=== PATIENT | female | born 1965 | race Caucasian/White ===

== ENCOUNTER 2023-04-02 09:41 | Outpatient (OUT) | payer MEDICARE, SELFPAY ==
[2023-04-02 09:59] LABS: Basophils Percent Auto 0.6 % (0.2-2.0); Eosinophils Absolute Auto 0.2 10^3/uL (0.0-0.7); Eosinophils Percent Auto 3.8 % (0.9-7.0); Hematocrit 38.2 % (36.0-48.0); Hemoglobin 13.2 g/dL (12.0-16.0); Immature Granulocytes Abs Auto 0.02 10^3/uL (0.00-0.03); Immature Granulocytes Pct Auto 0.3 % (0.0-0.5); Lymphocytes Absolute Auto 1.4 10^3/uL (1.2-3.8); Lymphocytes Percent Auto 22.1 % (20.5-60.0); Mean Corpuscular HGB Conc 34.6 g/dL (29.9-35.2); Mean Corpuscular Hemoglobin 32.3 pg (26.7-34.0); Mean Corpuscular Volume 93.4 fL (81.0-99.0); Mean Platelet Volume 8.9 fL (9.5-13.5); Monocytes Absolute Auto 0.4 10^3/uL (0.3-0.8); Monocytes Percent Auto 6.4 % (1.7-12.0); Neutrophils Absolute Auto 4.2 10^3/uL (1.4-6.5); Neutrophils Percent Auto 66.8 % (43.0-75.0); Platelet Count 250 10^3/uL (150-450); Red Blood Count 4.09 10^6/uL (4.20-5.40); Red Cell Distribution Width 12.5 % (11.0-15.0); White Blood Count 6.3 10^3/uL (4.0-11.0)
[2023-04-02 10:27] LABS: Alanine Aminotransferase 34 U/L (14-59); Albumin Level 3.9 g/dL (3.4-5.0); Alkaline Phosphatase 100 U/L (46-116); Anion Gap 12.6; Aspartate Amino Transferase 26 U/L (15-37); BUN Creatinine Ratio 15.6; Bilirubin Total 0.4 mg/dL (0.2-1.0); Calcium 9.3 mg/dL (8.5-10.1); Carbon Dioxide 26.1 mmol/L (21.0-32.0); Chloride 100 mmol/L (98-107); Estimated GFR (African America >60 (>=60); Estimated GFR (Non-African Ame >60 (>=60); Globulin 3.8 g/dL; Glucose 93 mg/dL (74-106); Potassium 3.7 mmol/L (3.5-5.1); Sodium 135 mmol/L (136-145); Total Protein 7.7 g/dL (6.4-8.2)
[2023-04-02 10:44] LABS: Chol HDL Ratio 2.8; Cholesterol 168 mg/dL (<=200); HDL Cholesterol 59 mg/dL (40-60); Thyroid Stimulating Hormone 2.364 uIU/mL (0.358-3.740); Triglycerides 275 mg/dL (<=150)
[2023-04-03 09:07] LABS: HCV Ab Non Reactive (Non Reactive); HIV Ab/p24 Ag Screen Non Reactive (Non Reactive)
== END 2023-04-02 09:42 ==
LOC: LAB 09:41
PROVIDERS: PCP Nurse Practitioner Primary Care; Visit Provider Nurse Practitioner Primary Care
DX: I10 Essential (primary) hypertension (principal); Z11.4 Encounter for screening for human immunodeficiency virus [HIV]; E78.5 Hyperlipidemia, unspecified; Z13.29 Encounter for screening for other suspected endocrine disorder
CPT/HCPCS: 36415; 80053; 80061; 84443; 85025; 86803; 87389

== ENCOUNTER 2024-03-06 09:50 | Outpatient (OUT) | payer MEDICARE, SELFPAY ==
[2024-03-06 11:02] LABS: Hematocrit 34.4 % (36.0-48.0); Mean Corpuscular HGB Conc 34.9 g/dL (29.9-35.2); Mean Corpuscular Hemoglobin 32.6 pg (26.7-34.0); Mean Corpuscular Volume 93.5 fL (81.0-99.0); Mean Platelet Volume 8.9 fL (9.5-13.5); Platelet Count 273 10^3/uL (150-450); Red Blood Count 3.68 10^6/uL (4.20-5.40); Red Cell Distribution Width 12.5 % (11.0-15.0); White Blood Count 5.8 10^3/uL (4.0-11.0)
[2024-03-06 11:51] LABS: Alanine Aminotransferase 37 U/L (14-59); Albumin Globulin Ratio 1.1; Albumin Level 3.9 g/dL (3.4-5.0); Alkaline Phosphatase 84 U/L (46-116); Anion Gap 9.4; Aspartate Amino Transferase 21 U/L (15-37); BUN Creatinine Ratio 13.5; Bilirubin Total 0.4 mg/dL (0.2-1.0); Calcium 9.4 mg/dL (8.5-10.1); Carbon Dioxide 29.5 mmol/L (21.0-32.0); Chloride 95 mmol/L (98-107); Chol HDL Ratio 2.7; Cholesterol 178 mg/dL (<=200); Estimated GFR (African America >60 (>=60); Estimated GFR (Non-African Ame >60 (>=60); Globulin 3.4 g/dL; Glucose 87 mg/dL (74-106); HDL Cholesterol 65 mg/dL (40-60); Potassium 3.9 mmol/L (3.5-5.1); Sodium 130 mmol/L (136-145); TSH W/ REFLEX FT4 2.034 uIU/mL (0.358-3.740); Total Protein 7.3 g/dL (6.4-8.2); Triglycerides 230 mg/dL (<=150)
[2024-03-07 05:08] LABS: HCV Ab Non Reactive (Non Reactive); HIV Ab/p24 Ag Screen Non Reactive (Non Reactive)
== END 2024-03-06 09:51 | disposition home or self-care (01) ==
PROVIDERS: PCP Nurse Practitioner; Visit Provider Nurse Practitioner
DX: Z00.00 Encounter for general adult medical examination without abnormal findings (principal); Z13.6 Encounter for screening for cardiovascular disorders; Z11.59 Encounter for screening for other viral diseases; Z11.4 Encounter for screening for human immunodeficiency virus [HIV]; Z13.29 Encounter for screening for other suspected endocrine disorder
CPT/HCPCS: 36415; 80053; 80061; 84443; 85027; 86803; 87389

== ENCOUNTER 2024-04-11 11:04 | Outpatient (OUT) | payer MEDICARE, SELFPAY ==
--- OUTSIDE RECORDS SUMMARY | 2024-04-11 11:12 | XMS_ITS ---
Patient Summarization (C-CDA 2.1 CCD) Created on: April 11, 2024 ANASTASIA PORTILLO : 1965 Sex: Undifferentiated Author Organization Sample organization Care Team Providers Care T[employer] Curer Name Role Phone GINNY BURT Admitting Unavailable GINNY BURT Attending Unavailable [facility] DR TOLLIVER Primary Care Unavailable TREVA, DR LADI Camara Consulting Unavailable GINNY BURT Consulting Unavailable Emerson SALEEM, Caryl Paul Primary Care Unavailab Irene SALEEM, Nona Goodrich Attending Unavail able Emerson SALEEM, Caryl Paul Primary Care Unavailab Irene SALEEM, Nona Goodrich Attending Unavail able JASMIN THORNTON Attending Unavailable GINNY BURT Attending Unavailable SATURNINO MCADAMS Referring Unavailable PEMASATURNINO Page Primary Care Unavailable DIONY ROLLINS Attending Unavailable DIONY ORLLINS Referring Unavailable PEMASATURNINO Primary Care Unavailable Allergies Allergy Classification Reported Allergen(s) Allergy Type Date of Onset Reaction(s) Facility (1 source) No Known Medication Allergies; Translations: [No Known Medication Allergies] Propensity to adverse reactions to drug (disorder) [facility] Repository Encounters Encounter Date Encounter Type Care Provider Facility Start: 04-05-2024 End: 04-05-2024 ambulatory DIONY ROLLINS [facility] Start: 03-28-2024 End: 03-28-2024 ambulatory SATURNINO [facility] Start: 03-28-2024 Encounter for gynecological examination (general) (routine) without abnormal findings [facility] Start: 03-27-2024 End: 03-27-2024 ambulatory GINNY BURT Not Available Start: 12-06-2023 End: 12-06-2023 ambulatory JASMIN THORNTON Not Available Start: 11-02-2023 End: 11-03-2023 ambulatory Caryl Norman MD Facility:[facility] Start: 11-27-2021 End: 11-28-2021 ambulatory GINNY BURT Facility:[facility] Payers Date Payer Category Payer Medicare [id number] 2021 Unknown 1965 Unknown [id number] 2.16.84 [id number] 1965 Unknown [id number] 2.16. [id number] 1965 Unknown [id number] 2.16. [id number] 1965 Unknown [id number] 2.16.84 [id number] 1965 Unknown [id number] 2.16.84 [id number] 1965 Unknown [id number] 2.16.8 [id number] 1965 Unknown [id number] 2.16.8 [id number] 1958 Unknown [id number] Problems Problem Classification Problem Date Documented Da te Episodic/Chronic Other connective tissue disease (1 source) Arthrodesis status; Translations: [ARTHRODESIS STATUS] Onset: 12-03-2021 Episodic Other nervous system disorders (1 source) Paresthesia of skin; Translations: [PARESTHESIA OF SKIN] Onset: 12-03-2021 Episodic Other screening for suspected conditions (not mental disorders or infectious disease) (2 sources) Encounter for screening mammogram for malignant neoplasm of breast; Translations: [Encounter for screening mammogram for malignant neoplasm of breast] Onset: 03-28-2024 Episodic Spondylosis; intervertebral disc disorders; other back problems (4 sources) Dorsalgia, unspecified; Translations: [DORSALGIA UNSPECIFIED] Onset: 11-27-2021 Episodic Unclassified (1 source) Annual Exam Onset: 03-28-2024 Results Test Name Value Interpretation Reference Range Facility MAMM SCREENING 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 Computer aided detection was utilized. FINDINGS: There are scattered areas of fibroglandular density. There are no suspicious masses, calcifications, or areas of architectural distortion. IMPRESSION: No mammographic evidence of malignancy. BI-RADS: BI-RADS 1 - Negative Recommendation: Routine screening mammogram in 1 year. Finalized by Matthew Whitt MD on 04/05/2024 1:37 PM 1 b MAMM 1 YR Normal [facility] Provider Letteron 11-14-2023 Provider Letter (Inserted Image. Emelina ble to display) Caryl Norman MD [address] [place] [id number] Re: Anastasia Portillo 1965 Date of Visit: 11/02/2023 Dear Caryl Norman, I had the pleasure of evaluating your patient, Anastasia Portillo, in the [facility] on 11/02/2023. Attached you will find my office visit note with detailed assessment and recommendations. Thank you for allowing me to participate in the care of your kind patient. The patient was provided with discharge instructions, both written and verbal, and follow up has been arranged as stated in the attached note. Please do not hesitate to contact our office with any questions. Sincerely, Nona Barajas MD MS Allergy and Immunology [facility] [place] [address] C C Providers: The following document(s) were included in the letter: November 02, 2023 11:26:53 EST - (11/02/2023) Office Visit Note Normal [facility] Allergy/Immunology Office/Cl inic Noteon 11-02-2023 Allergy/Immunology Office/Clinic Note History of Present Illness Anastasia is a 58 year old female that returns to the office for a 1 year follow up. Anastasia reports she does Singulair daily. She reports she does use Flonase and Azelastine as needed. She reports she if she needs the nasal sprays its in the summer. She denies any nose bleeds or sinus infections. She does report PND and throat clearing in the mornings. Anastasia states she is not interested in allergy shots. She also denies any nasal drainage, nasal congestion, sore throat or itchy/watery eye. 11/01/2022 Assessment/Plan 1. Post-nasal drip Chronic postnasal drip is manageable with current medications. 2. Vertigo Chronic, stable on current therapies 3. Chronic allergic rhinitis due to pollen -Continue allergen avoidance measures: Pollen (tree, grass, weed), dust mite, dog -Continue fluticasone 1-2 sprays per nostril up to twice a day -Continue azelastine 1-2 sprays per nostril up to twice a day -Continue Singulair 10 mg daily -May add nasal saline spray/mist prior to nasal sprays -Notify office if allergy symptoms become uncontrolled Follow-up in 12 months for AR, postnasal drip or sooner if needed [1] Physical Exam Vitals & Measurements HR: 67 (Peripheral) BP: 115/80 HT: 165 cm WT: 79.9 kg WT: 79.9 kg (Dosing) BMI: 29.35 Constitutional: The patient is oriented to person, place, and time and well-developed, well-nourished, and in no distress. HENT: Head: Normocephalic and atraumatic. Right Ear: Tympanic membrane, external ear and ear canal normal. No drainage or tenderness. Tympanic membrane is not injected, not scarred, not perforated, not erythematous and not retracted. Left Ear: Tympanic membrane, external ear and ear canal normal. No drainage or tenderness. Tympanic membrane is not injected, not scarred, not perforated, not erythematous and not retracted. Nose: Mucosal edema moderate (pale boggy nasal mucosa without obstruction or nasal polyps) and rhinorrhea (clear) ispresent. Mouth/Throat: Uvula is midline, oropharynx is clear and moist and mucous membranes are normal. Eyes: Conjunctivae and EOM are normal. Pupils are equal, round, and reactive to light. Neck: Normal range of motion. Neck supple. Cardiovascular: Normal rate and regular rhythm. No murmur heard. Pulmonary/Chest: Effort normal and breath sounds normal. No wheezes. No rales. Abdominal: Soft. Bowel sounds are normal. No masses.Musculoskeletal: Normal range of motion. No visible edema. Neurological: Alert and oriented to person, place, and time. Skin: Skin is warm and dry. No rash noted. Not diaphoretic. No erythema. Psychiatric: Affect normal. Vitals Reviewed Additional Vitals No qualifying data available. Assessment/Plan 1. Chronic allergic rhinitis due to pollen Well controlled on current regimen of Flonase, Azelastine, Singulair and saline. We discussed incorporation of saline rinse before bed to help with dryness. Plan - May use saline rinse before bed - Continue Singulair - Use nasal sprays as needed - Follow up in 1 year Physician Comments This note was created with the aid of LetMe[employer] voice recognition software. Every reasonable effort was made to assure accuracy and reliability of this note despite the inaccuracy, inefficiencies, and flaws of any electronic medical record program. There may be typographical errors that remain unaddressed and this in no way reflects on the quality of patient care received in this patient encounter. Problem List/Past Medical History Ongoing Chronic allergic rhinitis due to pollen Ear pain Hypercholesterolemia Hypertension - High blood pressure Post-nasal drip Vertigo Vestibular nerve disorder Historical No qualifying data Procedure/Surgical History Gall Bladder Removal (03/17/1992) Knee Surgery (1995) Comments: 7 on left knee; Patient Comment: Had 7 knee surgeries since Back Surgery (10/04/2013) Medications amitriptyline 25 mg oral tablet atorvastatin 40 mg oral tablet azelastine 137 mcg/inh (0.1%) nasal spray, 1 sprays, Nasal, BID, 3 refills Cymbalta 20 mg oral delayed release capsule, 40 mg= 2 caps, Oral, Daily, Not taking fluticasone 50 mcg/inh nasal spray, 1 sprays, Nasal, BID, 3 refills montelukast 10 mg oral tablet, 10 mg= 1 tabs, Oral, Daily, 1 refills Pepcid AC 10 mg oral tablet, 10 mg= 1 tabs, Oral, Daily Prempro 0.3 mg-1.5 mg oral tablet, 1 tabs, Oral, Daily Soolantra 1% topical cream, 1 erickson, Topical, Daily, Not taking Trileptal, 300 mg Caterina, Not taking Allergies No Known Medication Allergies Social History Employment/School Retired. Exercise Exercise duration: 30. Exercise frequency: Daily. Home/Environment Living situation: Home/Independent. Smoker in household: Yes. Feels unsafe at home: Yes. Safe place to go: Yes. Family/Friends available for support: Yes. Sexual Sexually active: Yes. Number of partners in last 30 days 1. Number of partners in last 12 months 1. Sexual orientation: Straight or heterosexual (more content not included)... Normal [facility] XR Spine Lumbar Complete w/F raul AND Mobile 03-22-2022 XR Spine Lumbar Complete w/Flex AND Ext FINDINGS: Lumbosacral pedicle screw fusion hardware, intervertebral disc spacer. No osseous or hardware fusion. Preserved disc space heights throughout the lumbar spine and distal thoracic region. FLEXION AND EXTENSION: Near normal anatomic alignment, lumbosacral fusion (no change). IMPRESSION: 1. Lumbosacral fusion, near normal anatomic alignment. 2. No change with flexion and extension. Report reported and signed by Kenton Cummings on 03/22/2022 1049 Normal [facility] MR head/brain wo/w conon MR head/brain wo/w con [facility] [address] MRI Report Signed Patient: Anastasia Portillo MR#: [id number] : 1965 Acct:[id number] Age/Sex: 56 / F ADM Date: 02/17/22 Loc: MR Room: Type: [facility] Attending Dr: Ginny Burt PA-C Ordering Provider: Ginny Burt PA-C Date of Service: 02/17/22 MR/MR head/brain wo/w con: R42, G43.809, G43.019 Copies to: Ginny Burt PA-C MR head/brain wo/w con 02/17/2022 2:50 PM SIGN AND SYMPTOMS: History of migraine headaches with vertigo PROTOCOL: Multiplanar multisequence MR images of the brain were obtained with and without IV contrast. CONTRAST: 17 mL of intravenous ProHance COMPARISON: None. FINDINGS: Extra axial spaces: Age appropriate. Hemorrhage: None. Ventricular system: Within normal limits. Basal cisterns: Within normal limits and not effaced. Cerebral parenchyma: Scattered nonspecific T2 and T2 FLAIR hyperintense foci are noted in the periventricular and subcortical white matter. Midline shift: None.. Cerebellum: Within normal limits. Brainstem: Within normal limits. OTHER: Calvarium: Normal marrow signal. Vascular system: Satisfactory flow voids within the anterior and posterior circulation. Visualized Paranasal sinuses: Within normal limits. Visualized Orbits: Within normal limits. Visualized upper cervical spine: Within normal limits. Sella and skull base: Within normal limits. MR/MR head/brain wo/w con IMPRESSION: No acute intracranial pathology or abnormal postcontrast enhancement. Scattered nonspecific T2 and T2 FLAIR hyperintense foci are noted in the periventricular and subcortical white matter. Impression dictated by: Cesar Ponce M.D.02/17/2022 4:56 PM Dictation Location: [place] [address] Transcribed By: [facility] 02/17/221655 Dictated By: Cesar Ponce II, MD 02/17/22 164 Signed By: 02/17/221655 [facility] MRI LSPINE WO CONon 11-27-19 MRI LSPINE WO CON EXAMINATION: MRI LSP INE WO CON HISTORY: Paresthesia , chronic lumbar pain, bilateral feet numbness, no known injury COMPARISON: MRI lumbar spine 07/13/2013 TECHNIQUE: A variety of imaging planes and parameters were utilized for visualization of suspected pathology. FINDINGS: For the purposes of numbering, sagittal T2 image # 8 extends from the T11 vertebral body superiorly to the S3 level inferiorly. PARASPINAL AREA: Normal with no visible mass. BONES: Posterior mechanical stabilization L5-S1 via bilateral pedicle screws and rods. Posterior decompression L5. CORD/CAUDA EQUINA: Normal caliber, contour, and signal intensity. DISC LEVELS: 12-L1: No significant disc/facet abnormality, spinal stenosis, or foraminal stenosis. L1-L2: No significant disc/facet abnormality, spinal stenosis, or foraminal stenosis. L2-L3: Early degenerative disc disease is present without focal protrusion or neural impingement. L3-L4: Early degenerative disc disease is present without focal protrusion or neural impingement. L4-L5: Mild foramen narrowing bilaterally without significant central canal narrowing. Mild diffuse disc bulging. Mild degenerative facet arthropathy. L5-S1: Mild foramen narrowing bilaterally without significant central canal narrowing. Posterior decompression of L5. Mild disc height reduction with intervertebral disc spacer in place. IMPRESSION: 1. Prior mechanical fusion of L5-S1, L5 posterior decompression, and L5-S1 intervertebral disc spacer. No specific findings to account for patient's symptoms. Electronically authenticated by: LADI TILLEY Date: 2021-11-27 11:[address] [facility] C-Reactive Proteinon 021 C-Reactive Protein 1.4 mg/dL High 0.0-1.0 [facility] Comment on above: Result Comment: PERF ORMED BY: [place] [address] PATHOLOGIST EVENT REPRESENTATIVE ALONDRA TAYLOR M.D. Performed By: #### H BCAB, HBSAG, HCV AB RFX RISHABH, HBSAB #### [facility] , #### CBC, ESR, CRP #### [address] Complete Blood Count Auto Di ffon 04-30-2021 Basophils (Bld) [#/Vol] 0.1 10*3/uL Normal 0.0-0.2 [facility] Comment on above: Performed By: #### H BCAB, HBSAG, HCV AB RFX RISHABH, HBSAB #### [facility] , #### CBC, ESR, CRP #### [facility] [address] [place] [address] Basophils/100 WBC (Bld) 1.2 % Normal . [facility] Comment on above: Performed By: #### H BCAB, HBSAG, HCV AB RFX RISHABH, HBSAB #### [facility] , #### CBC, ESR, CRP #### [facility] [address] [place] [address] [place] Eosinophils (Bld) [#/Vol] 0.2 10*3/uL Normal 0.0-0.45 [facility] Comment on above: Performed By: #### H BCAB, HBSAG, HCV AB RFX RISHABH, HBSAB #### [facility] , #### CBC, ESR, CRP #### [place] [address] [place] Eosinophils/100 WBC (Bld) 2.2 % Normal . [facility] Comment on above: Performed By: #### H BCAB, HBSAG, HCV AB RFX RISHABH, HBSAB #### [facility] , #### CBC, ESR, CRP #### [address] Erythrocyte distribution width (RBC) [Ratio] 12.7 % Normal 11.9-15.3 [facility] Comment on above: Performed By: #### H BCAB, HBSAG, HCV AB RFX RISHABH, HBSAB #### [facility] , #### CBC, ESR, CRP #### [address] Hematocrit (Bld) [Volume fraction] 39.1 % Normal 34.0-46.4 [facility] Comment on above: Performed By: #### H BCAB, HBSAG, HCV AB RFX RISHABH, HBSAB #### [facility] , #### CBC, ESR, CRP #### [address] Hemoglobin (Bld) [Mass/Vol] 13.1 g/dL Normal 11.8-15.4 [facility] Comment on above: Performed By: #### H BCAB, HBSAG, HCV AB RFX RISHABH, HBSAB #### [facility] , #### CBC, ESR, CRP #### [address] Lymphocytes (Bld) [#/Vol] 1.7 10*3/uL Normal 1.00-4.8 [facility] Comment on above: Performed By: #### H BCAB, HBSAG, HCV AB RFX RISHABH, HBSAB #### [facility] , #### CBC, ESR, CRP #### [address] Lymphocytes/100 WBC (Bld) 23.3 % Normal . [facility] Comment on above: Performed By: #### H BCAB, HBSAG, HCV AB RFX RISHABH, HBSAB #### [facility] , #### CBC, ESR, CRP #### [address] MCH (RBC) [Entitic mass] 31.8 pg Normal 24.7-34.3 [facility] Comment on above: Performed By: #### H BCAB, HBSAG, HCV AB RFX RISHABH, HBSAB #### [facility] , #### CBC, ESR, CRP #### [address] MCV (RBC) [Entitic vol] 94.6 fL Normal 80-100 [facility] Comment on above: Performed By: #### H BCAB, HBSAG, HCV AB RFX RISHABH, HBSAB #### [facility] , #### CBC, ESR, CRP #### [address] Mean Corpuscular HGB Conc 33.6 g/dL Normal 32.0-35.0 [facility] Comment on above: Performed By: #### H BCAB, HBSAG, HCV AB RFX RISHABH, HBSAB #### [facility] , #### CBC, ESR, CRP #### [address] Monocytes (Bld) [#/Vol] 0.5 10*3/uL Normal 0.0-0.8 [facility] Comment on above: Performed By: #### H BCAB, HBSAG, HCV AB RFX RISHABH, HBSAB #### [facility] , #### CBC, ESR, CRP #### [address] Monocytes/100 WBC (Bld) 7.2 % Normal . [facility] Comment on above: Performed By: #### H BCAB, HBSAG, HCV AB RFX RISHABH, HBSAB #### [facility] , #### CBC, ESR, CRP #### [place] [address] [place] Neutrophils (Bld) [#/Vol] 4.8 10*3/uL Normal 1.8-7.7 [facility] Comment on above: Performed By: #### H BCAB, HBSAG, HCV AB RFX RISHABH, HBSAB #### [facility] , #### CBC, ESR, CRP #### [address] Neutrophils/100 WBC (Bld) 66.1 % Normal . [facility] Comment on above: Performed By: #### H BCAB, HBSAG, HCV AB RFX RISHABH, HBSAB #### [facility] , #### CBC, ESR, CRP #### [place] [address] [place] Nucleated RBC/100 WBC (Bld) [Ratio] 0.0 % Normal 0-0.5 [facility] Comment on above: Performed By: #### H BCAB, HBSAG, HCV AB RFX RISHABH, HBSAB #### [facility] , #### CBC, ESR, CRP #### [address] Platelet mean volume (Bld) [Entitic vol] 7.9 fL Normal 6.3-10.7 [facility] Comment on above: Performed By: #### H BCAB, HBSAG, HCV AB RFX RISHABH, HBSAB #### [facility] , #### CBC, ESR, CRP #### [facility] [address] [place] [address] [place] Platelets (Bld) [#/Vol] 280 10*3/uL Normal 150-450 [facility] Comment on above: Performed By: #### H BCAB, HBSAG, HCV AB RFX RISHABH, HBSAB #### [facility] , #### CBC, ESR, CRP #### [facility] [address] [place] [address] RBC (Bld) [#/Vol] 4.13 10*6/uL Normal 3.60-5.00 [facility] Comment on above: Performed By: #### H BCAB, HBSAG, HCV AB RFX RISHABH, HBSAB #### [facility] , #### CBC, ESR, CRP #### [address] WBC (Bld) [#/Vol] 7.2 10*3/uL Normal 4.5-11.0 [facility] Comment on above: Performed By: #### H BCAB, HBSAG, HCV AB RFX RISHABH, HBSAB #### [facility] , #### CBC, ESR, CRP #### [address] Erythrocyte Sedimentation Ra cheryl 04-30-2021 ESR (Bld) [Velocity] 20 mm/h Normal 0-29 [facility] Comment on above: Result Comment: PERF ORMED BY: [place] [address] PATHOLOGIST EVENT REPRESENTATIVE ALONDRA TAYLOR M.D. Performed By: #### H BCAB, HBSAG, HCV AB RFX RISHABH, HBSAB #### [facility] , #### CBC, ESR, CRP #### [address] HCV Ab with Rfx to NAAon HCV Ab with Reflex to Qual RISHABH 0.1 Normal 0.0-0.9 [facility] Comment on above: Performed By: #### H BCAB, HBSAG, HCV AB RFX RISHABH, HBSAB #### [facility] , #### CBC, ESR, CRP #### [facility] [address] [place] [address] Interpretation Normal . [facility] Comment on above: Result Comment: Nega tive Not infected with HCV, unless recent infection is suspected or other evidence exists to indicate HCV infection. Performed at: [facility] [address] [id number] Superintendent Renting Managing: Delfino Singh PhD, Phone: [phone] PERFORMED BY: [place] [address] PATHOLOGIST EVENT REPRESENTATIVE ALONDRA TAYLOR M.D. Performed By: #### H BCAB, HBSAG, HCV AB RFX RISHABH, HBSAB #### [facility] , #### CBC, ESR, CRP #### [address] Hepatitis B Core Antibodyon 04-30-2021 Hepatitis B Core Antibody Negative Normal Negative [facility] Comment on above: Result Comment: Perf ormed at: - [address] [id number] Superintendent Renting Managing: Delfino Singh PhD, Phone: [phone] Performed By: #### H BCAB, HBSAG, HCV AB RFX RISHABH, HBSAB #### [facility] , #### CBC, ESR, CRP #### [address] Hepatitis B Surface Antibody on 04-30-2021 Hepatitis B Surface Antibody Non-Reactive Normal . [facility] Comment on above: Result Comment: Non Reactive: Inconsistent with immunity, less than 10 mIU/mL Reactive: Consistent with immunity, greater than 9.9 mIU/mL Performed By: #### H BCAB, HBSAG, HCV AB RFX RISHABH, HBSAB #### [facility] , #### CBC, ESR, CRP #### [facility] [address] [place] [address] Hepatitis B Surface Antigeno n 04-30-2021 HBsAg Screen Negative Normal Negative [facility] Comment on above: Performed By: #### H BCAB, HBSAG, HCV AB RFX RISHABH, HBSAB #### [facility] , #### CBC, ESR, CRP #### [place] [id number] [facility] CNOVon 09-19-2019 CNOV Office Visit (DAVID ) -------- LINDSEYANASTASIA DE JESUS ([id number]) 1965 F Date Time Provider Department 09/19/19 1:00 PM MAHSA WHEAT During your visit today, we recorded the following information about you: Pulse Respiration Blood pressure 74/minute 16/minute 142/91 Priya Sauceda RN, RN 09/19/2019 12:58 PM Signed Patient instructed to follow up with PCP for Bp. Agreeable to plan. SIENNA Hodge MD 09/19/2019 2:39 PM Signed OTONEUROLOGY CONSULTATION Referral source: Edda Ortiz MD Chief Complaint: Dizziness: Spinning Imbalance Headache Left ear pain Neck: Pain ######################## ######################## ################## ######################## ######################## ################## Impressions: Issues of dizziness, imbalance, headache, neck pain and left-sided tinnitus and ear pain. Likely overlap between a peripheral vestibular disturbance, abnormal upper cervical spine biomechanics, migraine and possible occipital nerve irritation on the left. Chronic daily headache with elements of chronic migraine and cervicogenic headache. Disorders include: Possible peripheral vestibular disturbance on the left (neurolabyrinthitis) at some point in time, despite normal vestibular testing, most likely of viral etiology. Patient manifests an asymmetry of upper cervical spine biomechanics. This may be the consequence of the combination of a peripheral vestibular disorder, trauma and arthritis. This may underlie issues of cervicalgia and provide a substrate for cervicogenic headache. Cervical spine issues may be complicated by occipital nerve irritation on the left. All of this may have exacerbated a tendency toward migraine with a component of visual-motion sensitivity. Gait is somewhat unsteady and likely related to the putative vestibular syndrome Recommendations/Plan: Neck physical therapy: Continue with Kristofer Newsomejunior Remain away from cervical chiropracty for now Migraine: - continue magnesium oxide 500mg/day as a migraine supplement. - Handout regarding migraine and diet was given to the patient. Further testing: none at this time Medications: Start duloxetine 20mg / day directed toward chronic migraine and neck pain. Risks and benefits discussed with patient. Continue oxcarbazepine for now Consider PREEMPT Botox for chronic migraine Next preventative to consider is nadolol Consider a CGRP antagonist for chronic migraine such as Aimovig, Ajovy or Emgality Follow-up: PRN. Patient to call in 3 weeks to report status. ######################## ######################## ################## ######################## ######################## ################## ######################## ######################## ################## History: Preceding URI symptoms: No Onset of symptoms: In usual state of health until about 5 yrs ago. Stood up from bending over at work and felt dizzy (spinning). Went home. Constant spinning. Was off work x 2-3 months. Went for PT w/ benefit. Back to baseline. Starting after this, about 2-3x/yr - episodes spinning / problems with visual focus / neck / headache. 1.5 to 3 months. Gradually worse over time Off work 10/03/18 to 11/20/18 off work. Few days of dizziness. Went off work again 12/26/18, returned on February 06. Intermittent dizziness. Was doing fairly well in April Now: Dizziness: Spinning Returned on 05/29/19 - awoken with dizziness. Constant, gradually worse over time W/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 denies any history of otologic, otorrhea, tinnitus. She denies any autophony. She had 2 left intratympanic steroid injections in December that helped the otalgia but not the vertigo. She tried this again in May without benefit. There was an episode where a therapist performed a cervical manipulation which she notes subsided her symptoms completely for a few days. She has been trying dry needling and massage and this helps both the otalgia and vertigo. She has been on a salt aversion diet (no designated goal) and hydrochlorothiazide since September of last year without any benefit. She is currently symptomatic. She does remember getting some dizziness during prior vestibular testing but this was different compared to her prolonged episodes. She has tried antivert in the past which helps her sleep but not the dizziness. Medical History: ACTIVE PROBLEM LIST Dizziness and Giddiness Sensorineural Hearing Loss, Bilateral Vestibular Migraine Cervicalgia Central Positional Vertigo Surgical History: PAST SURGICAL HISTORY Procedure Laterality Date - BACK SURGERY HX - CHOLECYSTECTOMY HX - KNEE SURGERY HX Left x7 - LASIK Allergies: ALLERGIES No Known Allergies Medications: Current Outpatient Medications on File Prior to Visit: atorvastatin (LIPITOR) 40 mg tablet Every other day hydroCHLOROthiazide (HYDRODIURIL, ESIDRIX) 12.5 mg tablet montelukast (SINGULAIR) 10 mg tablet Take 10 mg by mouth daily at bedtime. Norethindrn A-E Estradiol-Iron 1 mg-20 mcg (24)/75 mg (4) tab Take 1 tablet by mouth. SANJUANITA 24 FE 1 mg-20 mcg (24)/75 mg (4) tab OXcarbazepine (TRILEPTAL) 300 mg tablet Take 1 tablet by mouth. ranitidine (ZANTAC) 150 mg tablet Take 150 mg by mouth. ivermectin (SOOLANTRA) 1 % crea Apply to affected area. tiZANidine HCl (ZANAFLEX) 2 mg capsule Take 2 mg by mouth three times daily. valACYclovir (VALTREX) 1 gram tab No current facility-administered medications on file prior to visit. Social History: No family history on file. Social History Socioeconomic History Marital status: Spouse name: Not on file Number of children: Not on file Years of education: Not on file Highest education level: Not on file Occupational History Not on file Social Needs Financial resource strain: Not on file Food insecurity: Worry: Not on file Inability: Not on file Transportation needs: Medical: Not on file Non-medical: Not on file Tobacco Use Smoking status: Never Smoker Smokeless tobacco: Never Used Substance and Sexual Activity Alcohol use: Yes Comment: 1 -2 drinks per day Drug use: Not on file Sexual activity: Not on file Lifestyle Physical activity: Days per week: Not on file Minutes per session: Not on file Stress: Not on file Relationships Social connections: Talks on phone: Not on file Gets together: Not on file Attends lutheran service: Not on file Active member of club or organization: Not on file Attends meetings of clubs or organizations: Not on file Relationship status: Not on file Intimate partner violence: Fear of current or ex partner: Not on file Emotionally abused: Not on file Physically abused: Not on file Forced sexual activity: Not on file Other Topics Concerns: Not on file Social History Narrative Not on file Review of Systems: GENERAL: No complaints except as noted in [facility]. NEUROLOGICAL: Positive history of migraine headaches HEAD, EYES, EARS, NOSE, AND THROAT: See HPI. Otherwise: CARDIOVASCULAR:No complaints of chest pain, irregular heart beat or dyspnea on exertion RESPIRATORY:No cough, sputum production and shortness of breath or wheezing GASTROINTESTINAL:No complaints of GI distress or change or bowel habits GENITOURINARY: No urinary frequency, blood in urine or dysuria EXTREMITY/MUSCULOSKELETA L/SKIN: negative HEMATOLOGY: Bleeding disorder - No Easy bruising - No ENDOCRINE:Negative for cold or heat intolerance, polyuria, polydipsia or goiter PSYCHOLOGICAL:neither Negative for sleep disturbance nor mood disorder nor recent psychosocial stressors Objective: Blood pressure 147/83, pulse 69, SpO2 99 %. Appearance: Well appearing, alert, in no acute distress, well-hydrated, well nourished. Communication: Able to speak and communicates clearly Head/Face: normocephalic, no masses, lesions, tenderness or abnormalities Facial nerve: Normal 1/6 bilaterally Skin: no skin lesions or scarring on face Ophthlamic: Full ocular motility intact; pupils symmetric Ears: AD Auricle without lesion, external auditory canal patent, tympanic membrane intact without effusion Auricle without lesion, external auditory canal patent, tympanic membrane intact without effusion Rinne Buchanan AD 256 L + + 512 R + + 1024 L + + Nose: external exam with straight profile Oral Cavity: dentition normal Oropharynx: Uvula hangs midline; mucosa is pink and moist; tonsils present Neck: No cervical or supraclavicular lymphadenopathy and Normal thyroid Neuro/Psych.: Alert and oriented - no nystagmus Cranial nervesIII, IV, : EOM normal VII: Normal strength in all divisions IX, X: Normal voice, platal elevation and sensation XII: Tongue mobility normal Gait: leans to the left at onset but habituates Eye movements: full in all gaze positions, no nystagmus Data Review: Audio: Today normal except bilateral borderline noise notch sensorineural hearing loss (SNHL) Immitance normal Vestibular testing battery/VNG: normal vhit, positional testing, OKN, oculomotors Outside testing: symmetric calorics, normal positionals, OKN, oculomotors Outside ECOG reputedly normal Assessment: (R42) Vertigo (primary encounter diagnosis) (G43.109) Vestibular migraine (M54.2) Cervicalgia (H81.4) Central positional vertigo Plan: 1: Audiogram + limited vestibular testing today Magnesium 400-500 mg/day B complex daily Continue low sodium diet (1500 mg/day) Stop hctz Continue PT Refer to Dr. Mahsa Wheat neurology after completion of neck PT for further evaluation. ICHD III criteria for Vestibular Migraines: A. At least five episodes fulfilling criteria C and D B. A current or past history of 1.1 Migraine without aura or 1.2 Migraine with aura C. Vestibular symptoms of moderate or severe intensity, 3+ lasting between 5 minutes and 72 hours D. At least 50% of episodes are associated with at least one of the following three migrainous features: 1. headache with at least two of the following four characteristics: a) unilateral location b) pulsating quality c) moderate or severe intensity d) aggravation by routine physical activity 2. photophobia and phonophobia 3. visual aura Procedures: None Burce Mcgraw MD for the service of MD Edda Jurado MD 07/25/2019 2:51 PM Signed Magnesium 400-500 mg/day B complex daily Continue low sodium diet (1500 mg/day) Stop hctz Continue PT Refer to Dr. Mahsa Wheat neurology after completion of neck PT for further evaluation. ICHD III criteria for Vestibular Migraines: A. At least five episodes fulfilling criteria C and D B. A current or past history of 1.1 Migraine without aura or 1.2 Migraine with aura C. Vestibular symptoms of moderate or severe intensity, 3+ lasting between 5 minutes and 72 hours D. At least 50% of episodes are associated with at least one of the following three migrainous features: 1. headache with at least two of the following four characteristics: a) unilateral location b) pulsating quality c) moderate or severe intensity d) aggravation by routine physical activity 2. photophobia and phonophobia 3. visual aura Referring Provider: SELF [[id number]] Allergies As of Date: 07/25/2019 (No Known Allergies) Date Reviewed: 07/25/2019 Reviewed by: Virgie Sears Ma - Fully Assessed Reason for Visit: New Patient [172] Cmt: left ear pain, vertigo Primary Visit Diagnosis:Vertigo [R42] Other Visit Diagnoses:Vestibular migraine [G43.109] Cervicalgia [M54.2] Central positional vertigo [H81.4] Order(s):COMPREHENSIVE AUDIOLOGIC EXAM [27066RHC] Order #: [id number] VESTIBULAR BATTERY TEST [05028DRS] Order #: [id number] CONSULT TO NEUROLOGY [9019] Order #: [id number]: 1 FUTURE Prescriptions as of 07/25/2019 Sig: ATORVASTATIN 40 MG TABLET Every other day HYDROCHLOROTHIAZIDE 12.5 MG T* MONTELUKAST 10 MG TABLET Take 10 mg by mouth daily at * NORETHINDRONE 1 MG-ETHINYL ES* Take 1 tablet by mouth. SANJUANITA 24 FE 1 MG-20 MCG (24)/* OXCARBAZEPINE 300 MG TABLET Take 1 tablet by mouth. RANITIDINE 150 MG TABLET Take 150 mg by mouth. IVERMECTIN 1 % TOPICAL CREAM Apply to affected area. TIZANIDINE 2 MG CAPSULE Take 2 mg by mouth three time* VALACYCLOVIR 1 GRAM TABLET Medication notes this encounter VALACYCLOVIR 1 GRAM TABLET >> Virgie Sears Ma 07/25/2019 10:33 AM >> VIRGIE SEARS MA Wed Jul 25, 2019 10:33 AM prn Problem List As Of Date 07/25/2019 Noted Resolved Dizziness and giddiness [R42] INVALID FOR* Sensorineural hearing loss, bilateral [H90.3] INVALID FOR* Vestibular migraine [G43.109] INVALID FOR* Cervicalgia [M54.2] INVALID FOR* Central positional vertigo [H81.4] INVALID FOR* Other instructions from your clinician: Magnesium 400-500 mg/day B complex daily Continue low sodium diet (1500 mg/day) Stop hctz Continue PT Refer to Dr. Mahsa Wheat neurology after completion of neck PT for further evaluation. ICHD III criteria for Vestibular Migraines: A. At least five episodes fulfilling criteria C and D B. A current or past history of 1.1 Migraine without aura or 1.2 Migraine with aura C. Vestibular symptoms of moderate or severe intensity, 3+ lasting between 5 minutes and 72 hours D. At least 50% of episodes are associated with at least one of the following three migrainous features: 1. headache with at least two of the following four characteristics: a) unilateral location b) pulsating quality c) moderate or severe intensity d) aggravation by routine physical activity 2. photophobia and phonophobia 3. visual aura Visit Notes: >> Virgie Sears Ma TueJul 25, 2019 10:33 AM Status: Signed Tobacco Use: Never Was smoking cessation packet given? N/A - Patient is a non-smoker or quit >1 year ago. Was a referral initiated?N/A Patient is a non-smoker Disposition: Return if symptoms worsen or fail to improve. Follow-up and Disposition History Recorded Encounter Status:Closed by EDDA ORTIZ MD on 08/23/19 [facility] CNOV Office Visit (CDISMN ) -------- ANASTASIA PORTILLO ([id number]) 1965 F Date Time Provider Department 07/25/19 1:00 PM NIESHA PIMENTEL (WANDA) CDISMN During your visit today, we recorded the following information about you: Niesha Pimentel 07/25/2019 2:18 PM Signed Head [facility] Neck [place] AUDIOLOGIC EVALUATION REPORT Name: Anastasia Portillo CCF#: [id number] Date of Service: 07/25/2019 Date of : 1965 Age: [age] year old Referred by: Edda Ortiz MD [id number] [facility] [id number] Referred for: Evaluation of the cause of disorder of hearing, tinnitus, or balance. Referral documented: In an order in [facility] (STAT Audio) Patient's major complaints: Vertigo Ms. Portillo was seen for an initial audiologic evaluation reporting constant vertigo that began May 29. Please reference Edda Ortiz MD [facility] note for full case history. Today, Ms. Portillo reported otalgia (2/) that is more so in her mastoid area behind her left ear. She denied otalgia, otorrhea, aural fullness, tinnitus, history of noise exposure without hearing protection, and family history of hearing loss. See [facility] Audiogram for additional reported history and symptoms. Anastasia was seen as a Same Day Add-On patient upon request of the physician. Results may be limited due to time constraints and lack of public health assistant's availability. INTERPRETATION OF HEARING STATUS RIGHT EAR: Hearing within normal limits 250-8000 Hz with a mild notch at 4000 Hz. LEFT EAR: Hearing within normal limits 250-8000 Hz with a mild notch at 4000 Hz. TESTING, AND RESULTS Following is a brief interpretation of the obtained findings from the audiologic evaluation. Refer to the Auditory Test Record for complete audiometric results. The patient was counseled about the test findings and appropriate audiologic recommendations were made. SUMMARY: Audiogram can be viewed under Forms/Audiology/[facility] m. OTOSCOPIC INSPECTION RIGHT EAR: Otoscopic inspection revealed ear canal was clear with an identifiable cone of light. LEFT EAR: Otoscopic inspection revealed ear canal was clear with an identifiable cone of light. ACOUSTIC IMMITTANCE RESULTS RIGHT EAR PROBE EAR: Tympanometry: Normal ME function. Acoustic Reflex Pattern (ipsi is right stimulus ear; contralateral is left stimulus ear): Ipsilateral and contralateral reflexes present at normal presentation level and sensation level Acoustic Reflex Decay (left stimulus ear) Decay is negative for VIII nerve involvement in the LEFT ear LEFT EAR PROBE EAR: Tympanometry: Normal ME function. Acoustic Reflex Pattern (ipsi is left stimulus ear; contralateral is right stimulus ear): Ipsilateral reflexes are present at normal presentation levels and sensation levels. Contralateral reflexes are present at elevated presentation levels, elevated sensation levels at 500 and 1000 Hz. No response was obtained at the limits of the equipment at 2000 Hz in the contralateral condition. Acoustic Reflex Decay (right stimulus ear) Could not test due to limits of equipment AUDIOMETRIC RESULTS RIGHT EAR Hearing Sensitivity: Within normal limits 250-8000 Hz with a mild SNHL notch at 4000 Hz Word Recognition Score : Excellent (90-100%). WRS is consistent with hearing sensitivity. Words were presented at 45 dB HL. The NU-6 Order by Difficult Word List (10 words) was used for testing. LEFT EAR: Hearing Sensitivity: Within normal limits 250-8000 Hz with a mild SNHL notch at 4000 Hz. Word Recognition Score: Excellent (90-100%). WRS is consistent with hearing sensitivity. Words were presented at 45 dB HL. The NU-6 Order by Difficult Word List (10 words) was used for testing. MANAGEMENT PLAN: * Continue medical follow-up with Edda Ortiz MD. * Proceed with scheduled vestibular assessment with Wanda Alvarez. * Re-evaluation as medically indicated. Sanjuana Haq of Audiology (Wanda) [employer] Wire[employer] Testing was obtained under the direct supervision of Wanda Trivedi, MANE/A I verify that I have reviewed the history, test results, and interpretation for this patient. Wanda Trivedi CCC-A [employer] NEIL Abbrev- iation Definition Degree of hearing sensitivity dB range WNL within normal limits WNL 0 - 20 SNHL sensorineural hearing loss Mild 20-40 CHL conductive hearing loss Moderate 40-55 MHL mixed hearing loss Moderately-Severe 55-70 WRS word recognition score Severe 70-90 ME middle ear Profound 90 + TM tympanic membrane Referring Provider: EDDA ORTIZ [[id number]] Allergies As of Date: 07/25/2019 (No Known Allergies) Date Reviewed: 07/25/2019 Reviewed by: Virgie Sears Ma - Fully Assessed Primary Visit Diagnosis:Dizziness and giddiness [R42] Other Visit Diagnosis:Sensorineural hearing loss, bilateral [H90.3] Prescriptions as of 07/25/2019 Sig: ATORVASTATIN 40 MG TABLET Every other day HYDROCHLOROTHIAZIDE 12.5 MG T* MONTELUKAST 10 MG TABLET Take 10 mg by mouth daily at * NORETHINDRONE 1 MG-ETHINYL ES* Take 1 tablet by mouth. SANJUANITA 24 FE 1 MG-20 MCG (24)/* OXCARBAZEPINE 300 MG TABLET Take 1 tablet by mouth. RANITIDINE 150 MG TABLET Take 150 mg by mouth. VALACYCLOVIR 1 GRAM TABLET IVERMECTIN 1 % TOPICAL CREAM Apply to affected area. TIZANIDINE 2 MG CAPSULE Take 2 mg by mouth three time* Problem List As Of Date 07/25/2019 Noted Resolved Dizziness and giddiness [R42] INVALID FOR* Sensorineural hearing loss, bilateral [H90.3] INVALID FOR* Classic SmartForms filed during this visit: Audiometry Encounter Status:Closed by NIESHA PIMENTEL on 07/25/19 [facility] CNOV Office Visit (VESBMN ) -------- ANASTASIA PORTILLO ([id number]) 1965 F Date Time Provider Department 07/25/19 1:00 PM [facility] your visit today, we recorded the following information about you: WANDA Alvarez 07/25/2019 2:55 PM Signed Head [facility] Neck [place] Vestibular and Balance Disorders Laboratory Report Name: Anastasia Portillo CCF#: [id number] Date of Service: 07/25/2019 Date of : 1965 Age: [age] year old Referred by: Edda Ortiz MD [address] [facility] [address] Referred for: Evaluation of the cause of disorder of hearing, tinnitus, or balance. Referral documented: In an order in Epic Pretest Instructions: Patient did NOT comply with the following pretest instructions: One beer last night (8pm); continued taking life-sustaining medications. Impressions and Recommendations OVERALL IMPRESSIONS: Normal limited vestibular examination based on normal video head impulse testing (vHIT), oculomotor, gaze stability, and positional testing. There were no indications of a peripheral vestibular system pathway involvement noted. Normal investigation of superior vestibular nerve function via examination of the horizontal semi-circular canals.There were no indications of a central vestibulo-ocular pathway involvement noted. Normal investigation of oculomotor function. No subjective or objective indications of Benign Paroxysmal Positional Vertigo (BPPV). Overall, there is low evidence to suggest an active inner ear contributor to reported symptoms of dizziness and imbalance. Further investigation into a possible headache/migraine variant and/or cervicogenic component to reported symptoms may be warranted at this time. RECOMMENDATIONS: * Patient returned to Edda Ortiz MD for review and further recommendations. * Consider consultation with Neurology to further investigate a possible headache/migraine variant to reported symptoms. * Consider enrolling in a vestibular and balance physical therapy program with specific emphasis on visually induced symptoms (I.e., scrolling on a phone/tablet, working on a computer, being under fluorescent lights, walking down a store aisle, etc.), balance confidence, fall risk prevention, and neck therapy. Vestibular and Balance Evaluation History and Results Anastasia Portillo was seen as a Same Day Add-On patient upon request of the referring provider. Results may be limited due to time constraints and lack of public health assistant's availability. Patient saw Edda Ortiz MD today for a consultation of possible Meniere's disease. Summary of historical data reviewed prior to appointment. NOTE: Information was verified today with the patient. Per Dr. Ortiz's Epic note : She reported that symptoms began in 2013 while she was at work. She notes that her vertigo lasts anywhere from 2 to 6 weeks and is associated with nausea but no emesis. Episodes were occurring near monthly. The overall duration has increased over time to nearly 9-10 weeks this past year. She has significant debility during episodes requiring extended periods off from work and inability to complete activity of daily living without significant breaks. She does note that alcohol does seem to improve her symptoms but she denies drinking in excess. Episodes start with a little pain in her left ear, left neck pain, and left severe occipital headache, left post nasal drip, and left diminished hearing. There is some baseline hearing loss now. Roughly 50% of the time she gets the associated headache and severe neck pain with the dizziness. She does get a severe headaches without dizziness a couple times a month. She gets photophobia with her migraines. She uses peppermint oil and Excedrin migraine for the severe headaches. She notes that after she started seeing a chiropractor her migraines improved. She also notes that when she is laying on her left side and rolls to her right she also gets the spins but she feels as though she is spinning during these episodes in contrast to the room spinning around her in the prolonged episodes. Turning her head to the right also sometimes produces these symptoms. She denies any history of otologic, otorrhea, tinnitus. She denies any autophony. ? She had 2 left intratympanic steroid injections in December that helped the otalgia but not the vertigo. She tried this again in May without benefit. There was an episode where a therapist performed a cervical manipulation which she notes subsided her symptoms completely for a few days. She has been trying dry needling and massage and this helps both the otalgia and vertigo. She has been on a salt aversion diet (no designated goal) and hydrochlorothiazide since September of last year without any benefit. She is currently symptomatic. She does remember getting some dizziness during prior vestibular testing but this was different compared to her prolonged episodes. She has tried antivert in the past which helps her sleep but not the dizziness. History confirmed and obtained at time of visit: Patient notes the following neurologic focal complaints: denies any neurologic focal complaints. Activities that provoke symptoms or aggravate symptoms or other associated symptoms: Positional Changes: sitting up from laying, standing up from sitting, turning head right, bending down, looking up and rolling over in bed to the right. Sensory and Gait: bright lights, scrolling on a phone/tablet, working on computer/laptop/tablet, riding on elevator, watching a movie/TV, being under flourescent lights, walking down a store aisle, walking over a patterned floor and tendency to veer when walking right Pressure/Sound Induced: none Cardiovascular: lightheadness with sit to stand position change Psychological: stress>anxiety Neck/Orthopedic: neck pain left with tightness. Patient has been receiving massage therapy and dry needling. Auditory History: Associated auditory complaints include:left sided otalgia and neck pain. Previous audiometry: Completed just prior to this appointment, results indicated hearing sensitivity within normal limits with a mild notch at 4000 Hz in both ears. Vision History: Date of last visual examination: Few months ago. Patient currently wearing: glasses: progressive. Patient notes the following associated visual problems: Floaters in the left eye only. Headache/Migraine History: Headaches/migraines frequency and duration: Patient reported she used to have migraines in the past, which subsided with chiropractor. Pain was localized in the back and would extend to forehead. Current headaches are localized to the occipital region. Estimates a few headaches per month, 50% occur following dizziness episodes. Additional characteristics include: photophobia Patient reports the following headache/migraine triggers: Hormonal: none Food: none Drink: none Stress: yes Sensory: bright lights Sleep: other: sleeping position due to neck issues. Physical exertion: none Environmental: none Fall/Risk History: Patient denies a history of falls. Additional falling risk factors include: none. Medical History: There is no problem list on file for this patient. Family History: Balance problems: No Hearing problems: No Headaches/Migraines: Yes, mother Other: No family history on file. Refer to the medical history clinic notes for additional details of the patient's presenting history signs and symptoms. SELF-REPORT ASSESSMENT RESULTS Symptom Rating: On a scale of 0 to 10 with 0 being no symptoms and 10 being the worst imaginable symptoms the patient reports symptoms of dizziness/imbalance today at 4.5. Fatigue Rating: On a scale of 0 to 10 with 0 being no fatigue and 10 being severe fatigue the patient reports level of fatigue today at 0. Headache Rating: On a scale of 0 to 10 with 0 being no headache and 10 being severe headache the patient reports level of headache today at 2. Dizziness Handicap Inventory (DHI): Deferred on this date. OBJECTIVE CLINICAL ASSESSMENT RESULTS Office Vestibular Examination: Extra-ocular range of motion: normal *Remaining bedside examination deferred on this date. Gait/Risk of Falling Examination: Observation of gait and transfer: abnormal, slowed gait with short steps. Additional risk of falling screening and gait examination deferred on this date. Video Head Impulse Test (VHIT): Description of Procedure: The vHIT can be completed in addition to VNG or in isolation when portions of the VNG cannot be completed, due to outer ear malformation, tympanic membrane perforation, among other factors. During vHIT, patients wear infrared goggles and their head is quickly moved in the plane of each semi-circular canal. This procedure provides an assessment of the vestibulo-ocular reflex (VOR) of each semicircular canal (high frequency responses). This procedure requires approximately 20 minutes of time. CPT code: 51330. Equipment Utilized: Interacoustics unit was used to obtain VHIT responses. Camera placement over the right eye. Lateral Canal vHIT: Normal. Findings demonstrate normal horizontal VOR gain values suggesting normal high frequency horizontal function in both ears. Of note, possible low amplitude overt saccades observed in the right lateral canal; however, this is likely due to goggle strap artifact. Vertical Canal vHIT: Did not test due to cervical range of motion restrictions and reported pain. Lateral Anterior Posterior Right Gain: 0.99, possible low amplitude overt saccades DNT DNT Left Gain: 0.95, no saccades DNT DNT NOTE: Normal gain values typically between 0.80 ? 1.20 (lateral canals) and 0.70 - 1.20 (vertical canals). Videonystagmography Examination (VNG): Description of Procedure: The VNG provides objective indications of peripheral (e.g., low frequency horizontal canal VOR function), central compensation (physiologically regarding eye movements) and central vestibulo-ocular pathway involvement (oculomotor examination). This procedure requires 30-45 minutes of time. CPT codes: 64251, 80394, 40626 Equipment Utilized: A Micromedical unit was used to record VNG. NOTE: Eye movements were analyzed with the eyes opened in darkness (unless otherwise specified) using infrared illuminated videographic pupil tracking techniques. The fast component (direction) of all nystagmus is reported, per convention, from the patient's perspective. Saccade Performance Test (pseudo-random presentation of a laser target; 5 - 50 deg horizontal steps): - Latency values: normal - Accuracy values: normal - Peak Velocity values: normal - Reported symptoms: none Pursuit Tracking Test (sinusoidal presentation of a laser target; .1-.6 Hz, 10-60 deg/sec): - Gain values: normal. No evidence of saccadic pursuit. Reported symptoms: none Spontaneous AND Gaze-Evoked Nystagmus Test (primary, 25 deg rightward, 25 deg leftward, 15 deg upward, and 15 deg downward gaze; with and without fixation): - Nystagmus gaze center with fixation: none. Reported symptoms: none. Nystagmus gaze center without fixation: none. Reported symptoms: none. - Nystagmus gaze right with fixation: none. Reported symptoms: none. Nystagmus gaze right without fixation: none. Reported symptoms: dizziness. - Nystagmus gaze left with fixation: none. Reported symptoms: none. Nystagmus gaze left without fixation: none. Reported symptoms: none. - Nystagmus gaze up with fixation: none. Reported symptoms: none. Nystagmus gaze up without fixation: none. Reported symptoms: none. - Nystagmus gaze down with fixation: none. Reported symptoms: none. Nystagmus gaze down without fixation: none. Reported symptoms: none. Neck torsion test (sitting, head turned right, sitting head turned left; without fixation): - Nystagmus neck torsion right: none. Reported symptoms: none - Nystagmus neck torsion left: none. Reported symptoms: none Vertical Semi-circular Canal BPPV Nystagmus tests (head-hanging right, sitting; head-hanging left, sitting; deep head hang; without fixation): - Nystagmus Mishel-Hallpike right ear down: none. Reported symptoms: none. Nystagmus return to sit: none. Reported symptoms: 'wooziness' - Nystagmus Mishel-Hallpike left ear down: none. Reported symptoms: none. Nystagmus return to sit: none. Reported symptoms: none Horizontal Semi-circular Canal BPPV and Positional Nystagmus tests (supine head centered, right ear down, left ear down, pre-caloric positions; without fixation). - Nystagmus head center supine: none. Reported symptoms: none - Nystagmus head (roll) right: none. Reported symptoms: none - Nystagmus head (roll) left: none. Reported symptoms: none - Nystagmus body right: none. Reported symptoms: none - Nystagmus body left: none. Reported symptoms: none Rotational Chair: deferred on this date. It was my pleasure to evaluate Anastasia Portillo. If you have any questions regarding this information, please contact me at [phone]. Desiree Martin. Doctor of Audiology (Karine) Office Machines Wirer I verify that I have reviewed the history, test results, and interpretation for this patient. Karine Alvarez, MANE/A Clinical Fur Plucker Referring Provider: EDDA ORTIZ [[id number]] Allergies As of Date: 07/25/2019 (No Known Allergies) Date Reviewed: 07/25/2019 Reviewed by: Virgie Sears Ma - Fully Assessed Primary Visit Diagnosis:Dizziness and giddiness [R42] Other Visit Diagnosis:Sensorineural hearing loss, bilateral [H90.3] Prescriptions as of 07/25/2019 Sig: ATORVASTATIN 40 MG TABLET Every other day HYDROCHLOROTHIAZIDE 12.5 MG T* MONTELUKAST 10 MG TABLET Take 10 mg by mouth daily at * NORETHINDRONE 1 MG-ETHINYL ES* Take 1 tablet by mouth. SANJUANITA 24 FE 1 MG-20 MCG (24)/* OXCARBAZEPINE 300 MG TABLET Take 1 tablet by mouth. RANITIDINE 150 MG TABLET Take 150 mg by mouth. VALACYCLOVIR 1 GRAM TABLET IVERMECTIN 1 % TOPICAL CREAM Apply to affected area. TIZANIDINE 2 MG CAPSULE Take 2 mg by mouth three time* Problem List As Of Date 07/25/2019 Noted Resolved Dizziness and giddiness [R42] INVALID FOR* Sensorineural hearing loss, bilateral [H90.3] INVALID FOR* Vestibular migraine [G43.109] INVALID FOR* Cervicalgia [M54.2] INVALID FOR* Central positional vertigo [H81.4] INVALID FOR* Encounter Status:Closed by DENISE HIDALGO on 07/25/19 [facility] PROGRESSon 07-25-2019 PROGRESS HNO ID: [id number] Author: Edda Ortiz Service: ? Author Type: Physician Type: Progress Notes Filed: 08/23/2019 10:04 AM Note Text: Staff Physician Comments: I testify that I personally interviewed and examined the patient. I reiterate the pertinent portions of the resident's exam and history as follows: This history is not consistent with Meniere's Disease. Sounds like migraine + prolonged vestibular symptoms. Clear relationship between headaches, neck pain and her dizziness. May have overlap of intermittent BPPV (benign paroxysmal positional vertigo) but testing today did not capture. Audio today did not reveal any hearing loss also making Meniere's Disease less likely. Recommend neck PT and mg and then Analy consultation to follow. Can stop hctz but recommend continue low sodium diet because of the overlap with migraineur diet. Pt will look into migraine avoidance diet online in interim. I spent greater than 60 minutes with patient, Over 50% of which was counseling, discussion of options. Edda Ortiz MD, FACS Otology/Neurotology/Skul l-Base Surgery Head and Neck [place] [facility] History of Present Ilness Ms. ANASTASIA PORTILLO is a 53 year old year old female referred by SELF And is a patient of MD Kyree Mark MD ([facility]) [address] [id number] Communication will be via the electronic record and letter. The chief complaint for this visit is: Vertigo Anastasia Portillo is a 53 year old female who presents for evaluation for possible meniere's disease. She this began in 2013 while she was at work. She notes that her vertigo lasts anywhere from 2 to 6 weeks and is associated with nausea but no emesis. Episodes were occurring near monthly. The overall duration has increased over time to nearly 9-10 weeks this past year. She has significant debility during episodes requiring extended periods off from work and inability to complete activity of daily living without significant breaks. She does note that alcohol does seem to improve her symptoms but she denies drinking in excess. Episodes start with a little pain in her left ear, left neck pain, and left severe occipital headache, left post nasal drip, and left diminished hearing. There is some baseline hearing loss now. Roughly 50% of the time she gets the associated headache and severe neck pain with the dizziness. She does get a severe headaches without dizziness a couple times a month. She gets photophobia with her migraines. She uses peppermint oil and Excedrin migraine for the severe headaches. She notes that after she started seeing a chiropractor her migraines improved. She also notes that when she is laying on her left side and rolls to her right she also gets the spins but she feels as though she is spinning during these episodes in contrast to the room spinning around her in the prolonged episodes. Turning her head to the right also sometimes produces these symptoms. She denies any history of otologic, otorrhea, tinnitus. She denies any autophony. She had 2 left intratympanic steroid injections in December that helped the otalgia but not the vertigo. She tried this again in May without benefit. There was an episode where a therapist performed a cervical manipulation which she notes subsided her symptoms completely for a few days. She has been trying dry needling and massage and this helps both the otalgia and vertigo. She has been on a salt aversion diet (no designated goal) and hydrochlorothiazide since September of last year without any benefit. She is currently symptomatic. She does remember getting some dizziness during prior vestibular testing but this was different compared to her prolonged episodes. She has tried antivert in the past which helps her sleep but not the dizziness. Medical History: ACTIVE PROBLEM LIST Dizziness and Giddiness Sensorineural Hearing Loss, Bilateral Vestibular Migraine Cervicalgia Central Positional Vertigo Surgical History: PAST SURGICAL HISTORY Procedure Laterality Date - BACK SURGERY HX - CHOLECYSTECTOMY HX - KNEE SURGERY HX Left x7 - LASIK Allergies: ALLERGIES No Known Allergies Medications: Current Outpatient Medications on File Prior to Visit: atorvastatin (LIPITOR) 40 mg tablet Every other day hydroCHLOROthiazide (HYDRODIURIL, ESIDRIX) 12.5 mg tablet montelukast (SINGULAIR) 10 mg tablet Take 10 mg by mouth daily at bedtime. Norethindrn A-E Estradiol-Iron 1 mg-20 mcg (24)/75 mg (4) tab Take 1 tablet by mouth. SANJUANITA 24 FE 1 mg-20 mcg (24)/75 mg (4) tab OXcarbazepine (TRILEPTAL) 300 mg tablet Take 1 tablet by mouth. ranitidine (ZANTAC) 150 mg tablet Take 150 mg by mouth. ivermectin (SOOLANTRA) 1 % crea Apply to affected area. tiZANidine HCl (ZANAFLEX) 2 mg capsule Take 2 mg by mouth three times daily. valACYclovir (VALTREX) 1 gram tab No current facility-administered medications on file prior to visit. Social History: No family history on file. Social History Socioeconomic History Marital status: Spouse name: Not on file Number of children: Not on file Years of education: Not on file Highest education level: Not on file Occupational History Not on file Social Needs Financial resource strain: Not on file Food insecurity: Worry: Not on file Inability: Not on file Transportation needs: Medical: Not on file Non-medical: Not on file Tobacco Use Smoking status: Never Smoker Smokeless tobacco: Never Used Substance and Sexual Activity Alcohol use: Yes Comment: 1 -2 drinks per day Drug use: Not on file Sexual activity: Not on file Lifestyle Physical activity: Days per week: Not on file Minutes per session: Not on file Stress: Not on file Relationships Social connections: Talks on phone: Not on file Gets together: Not on file Attends lutheran service: Not on file Active member of club or organization: Not on file Attends meetings of clubs or organizations: Not on file Relationship status: Not on file Intimate partner violence: Fear of current or ex partner: Not on file Emotionally abused: Not on file Physically abused: Not on file Forced sexual activity: Not on file Other Topics Concerns: Not on file Social History Narrative Not on file Review of Systems: GENERAL: No complaints except as noted in TLING[facility] & [facility]IDA. NEUROLOGICAL: Positive history of migraine headaches HEAD, EYES, EARS, NOSE, AND THROAT: See HPI. Otherwise: CARDIOVASCULAR:No complaints of chest pain, irregular heart beat or dyspnea on exertion RESPIRATORY:No cough, sputum production and shortness of breath or wheezing GASTROINTESTINAL:No complaints of GI distress or change or bowel habits GENITOURINARY: No urinary frequency, blood in urine or dysuria EXTREMITY/MUSCULOSKELETA L/SKIN: negative HEMATOLOGY: Bleeding disorder - No Easy bruising - No ENDOCRINE:Negative for cold or heat intolerance, polyuria, polydipsia or goiter PSYCHOLOGICAL:neither Negative for sleep disturbance nor mood disorder nor recent psychosocial stressors Objective: Blood pressure 147/83, pulse 69, SpO2 99 %. Appearance: Well appearing, alert, in no acute distress, well-hydrated, well nourished. Communication: Able to speak and communicates clearly Head/Face: normocephalic, no masses, lesions, tenderness or abnormalities Facial nerve: Normal 1/6 bilaterally Skin: no skin lesions or scarring on face Ophthlamic: Full ocular motility intact; pupils symmetric Ears: AD Auricle without lesion, external auditory canal patent, tympanic membrane intact without effusion Auricle without lesion, external auditory canal patent, tympanic membrane intact without effusion Rinne Buchanan AD 256 L + + 512 R + + 1024 L + + Nose: external exam with straight profile Oral Cavity: dentition normal Oropharynx: Uvula hangs midline; mucosa is pink and moist; tonsils present Neck: No cervical or supraclavicular lymphadenopathy and Normal thyroid Neuro/Psych.: Alert and oriented - no nystagmus Cranial nervesIII, IV, : EOM normal VII: Normal strength in all divisions IX, X: Normal voice, platal elevation and sensation XII: Tongue mobility normal Gait: leans to the left at onset but habituates Eye movements: full in all gaze positions, no nystagmus Data Review: Audio: Today normal except bilateral borderline noise notch sensorineural hearing loss (SNHL) Immitance normal Vestibular testing battery/VNG: normal vhit, positional testing, OKN, oculomotors Outside testing: symmetric calorics, normal positionals, OKN, oculomotors Outside ECOG reputedly normal Assessment: (R42) Vertigo (primary encounter diagnosis) (G43.109) Vestibular migraine (M54.2) Cervicalgia (H81.4) Central positional vertigo Plan: 1: Audiogram + limited vestibular testing today Magnesium 400-500 mg/day B complex daily Continue low sodium diet (1500 mg/day) Stop hctz Continue PT Refer to Dr. Mahsa Wheat neurology after completion of neck PT for further evaluation. ICHD III criteria for Vestibular Migraines: A. At least five episodes fulfilling criteria C and D B. A current or past history of 1.1 Migraine without aura or 1.2 Migraine with aura C. Vestibular symptoms of moderate or severe intensity, 3+ lasting between 5 minutes and 72 hours D. At least 50% of episodes are associated with at least one of the following three migrainous features: 1. headache with at least two of the following four characteristics: a) unilateral location b) pulsating quality c) moderate or severe intensity d) aggravation by routine physical activity 2. photophobia and phonophobia 3. visual aura Procedures: None Bruce Mcgraw MD for the service of Edda Ortiz MD [facility] PROGRESS HNO ID: [id number] Author: Niesha Pimentel Service: ? Author Type: ? Type: Progress Notes Filed: 07/25/2019 2:18 PM Note Text: Head [facility] Neck [place] AUDIOLOGIC EVALUATION REPORT Name: Anastasia Portillo CC#: [id number] Date of Service: 07/25/2019 Date of : 1965 Age: [age] year old Referred by: Edda Ortiz MD [address] [facility] [id number] Referred for: Evaluation of the cause of disorder of hearing, tinnitus, or balance. Referral documented: In an order in [facility] (STAT Audio) Patient's major complaints: Vertigo Ms. Portillo was seen for an initial audiologic evaluation reporting constant vertigo that began May 29. Please reference Edda Ortiz MD Epic note for full case history. Today, Ms. Portillo reported otalgia (2/10) that is more so in her mastoid area behind her left ear. She denied otalgia, otorrhea, aural fullness, tinnitus, history of noise exposure without hearing protection, and family history of hearing loss. See SmartForm Audiogram for additional reported history and symptoms. Anastasia was seen as a Same Day Add-On patient upon request of the physician. Results may be limited due to time constraints and lack of public health assistant's availability. INTERPRETATION OF HEARING STATUS RIGHT EAR: Hearing within normal limits 250-8000 Hz with a mild notch at 4000 Hz. LEFT EAR: Hearing within normal limits 250-8000 Hz with a mild notch at 4000 Hz. TESTING, AND RESULTS Following is a brief interpretation of the obtained findings from the audiologic evaluation. Refer to the Auditory Test Record for complete audiometric results. The patient was counseled about the test findings and appropriate audiologic recommendations were made. SUMMARY: Audiogram can be viewed under Forms/Audiology/SmartFor m. OTOSCOPIC INSPECTION RIGHT EAR: Otoscopic inspection revealed ear canal was clear with an identifiable cone of light. LEFT EAR: Otoscopic inspection revealed ear canal was clear with an identifiable cone of light. ACOUSTIC IMMITTANCE RESULTS RIGHT EAR PROBE EAR: Tympanometry: Normal ME function. Acoustic Reflex Pattern (ipsi is right stimulus ear; contralateral is left stimulus ear): Ipsilateral and contralateral reflexes present at normal presentation level and sensation level Acoustic Reflex Decay (left stimulus ear) Decay is negative for VIII nerve involvement in the LEFT ear LEFT EAR PROBE EAR: Tympanometry: Normal ME function. Acoustic Reflex Pattern (ipsi is left stimulus ear; contralateral is right stimulus ear): Ipsilateral reflexes are present at normal presentation levels and sensation levels. Contralateral reflexes are present at elevated presentation levels, elevated sensation levels at 500 and 1000 Hz. No response was obtained at the limits of the equipment at 2000 Hz in the contralateral condition. Acoustic Reflex Decay (right stimulus ear) Could not test due to limits of equipment AUDIOMETRIC RESULTS RIGHT EAR Hearing Sensitivity: Within normal limits 250-8000 Hz with a mild SNHL notch at 4000 Hz Word Recognition Score : Excellent (90-100%). WRS is consistent with hearing sensitivity. Words were presented at 45 dB HL. The NU-6 Order by Difficult Word List (10 words) was used for testing. LEFT EAR: Hearing Sensitivity: Within normal limits 250-8000 Hz with a mild SNHL notch at 4000 Hz. Word Recognition Score: Excellent (90-100%). WRS is consistent with hearing sensitivity. Words were presented at 45 dB HL. The NU-6 Order by Difficult Word List (10 words) was used for testing. MANAGEMENT PLAN: * Continue medical follow-up with Edda Ortiz MD. * Proceed with scheduled vestibular assessment with Wanda Alvarez. * Re-evaluation as medically indicated. Sanjuana Haq of Audiology (Wanda) Office Machines Wirer Testing was obtained under the direct supervision of Wanda Trivedi CCC/A I verify that I have reviewed the history, test results, and interpretation for this patient. Wanda Trivedi CCC-A Fur Plucker NEIL Abbrev- iation Definition Degree of hearing sensitivity dB range WNL within normal limits WNL 0 - 20 SNHL sensorineural hearing loss Mild 20-40 CHL conductive hearing loss Moderate 40-55 MHL mixed hearing loss Moderately-Severe 55-70 WRS word recognition score Severe 70-90 ME middle ear Profound 90 + TM tympanic membrane Normal [facility] PROGRESS HNO ID: [id number] Author: Denise Hidalgo (Aud) Service: ? Author Type: Fur Plucker Type: Progress Notes Filed: 07/25/2019 2:55 PM Note Text: Head and Neck [place] Vestibular and Balance Disorders Laboratory Report Name: Anastasia Portillo CCF#: [id number] Date of Service: 07/25/2019 Date of : 1965 Age: [age] year old Referred by: Edda Ortiz MD [address] [facility] [id number] Referred for: Evaluation of the cause of disorder of hearing, tinnitus, or balance. Referral documented: In an order in [facility] Pretest Instructions: Patient did NOT comply with the following pretest instructions: One beer last night (8pm); continued taking life-sustaining medications. Impressions and Recommendations OVERALL IMPRESSIONS: Normal limited vestibular examination based on normal video head impulse testing (vHIT), oculomotor, gaze stability, and positional testing. There were no indications of a peripheral vestibular system pathway involvement noted. Normal investigation of superior vestibular nerve function via examination of the horizontal semi-circular canals.There were no indications of a central vestibulo-ocular pathway involvement noted. Normal investigation of oculomotor function. No subjective or objective indications of Benign Paroxysmal Positional Vertigo (BPPV). Overall, there is low evidence to suggest an active inner ear contributor to reported symptoms of dizziness and imbalance. Further investigation into a possible headache/migraine variant and/or cervicogenic component to reported symptoms may be warranted at this time. RECOMMENDATIONS: * Patient returned to Edda Ortiz MD for review and further recommendations. * Consider consultation with Neurology to further investigate a possible headache/migraine variant to reported symptoms. * Consider enrolling in a vestibular and balance physical therapy program with specific emphasis on visually induced symptoms (I.e., scrolling on a phone/tablet, working on a computer, being under fluorescent lights, walking down a store aisle, etc.), balance confidence, fall risk prevention, and neck therapy. Vestibular and Balance Evaluation History and Results Anastasia Portillo was seen as a Same Day Add-On patient upon request of the referring provider. Results may be limited due to time constraints and lack of public health assistant's availability. Patient saw Edda Ortiz MD today for a consultation of possible Meniere's disease. Summary of historical data reviewed prior to appointment. NOTE: Information was verified today with the patient. Per Dr. Ortiz's Epic note : She reported that symptoms began in 2013 while she was at work. She notes that her vertigo lasts anywhere from 2 to 6 weeks and is associated with nausea but no emesis. Episodes were occurring near monthly. The overall duration has increased over time to nearly 9-10 weeks this past year. She has significant debility during episodes requiring extended periods off from work and inability to complete activity of daily living without significant breaks. She does note that alcohol does seem to improve her symptoms but she denies drinking in excess. Episodes start with a little pain in her left ear, left neck pain, and left severe occipital headache, left post nasal drip, and left diminished hearing. There is some baseline hearing loss now. Roughly 50% of the time she gets the associated headache and severe neck pain with the dizziness. She does get a severe headaches without dizziness a couple times a month. She gets photophobia with her migraines. She uses peppermint oil and Excedrin migraine for the severe headaches. She notes that after she started seeing a chiropractor her migraines improved. She also notes that when she is laying on her left side and rolls to her right she also gets the spins but she feels as though she is spinning during these episodes in contrast to the room spinning around her in the prolonged episodes. Turning her head to the right also sometimes produces these symptoms. She denies any history of otologic, otorrhea, tinnitus. She denies any autophony. ? She had 2 left intratympanic steroid injections in December that helped the otalgia but not the vertigo. She tried this again in May without benefit. There was an episode where a therapist performed a cervical manipulation which she notes subsided her symptoms completely for a few days. She has been trying dry needling and massage and this helps both the otalgia and vertigo. She has been on a salt aversion diet (no designated goal) and hydrochlorothiazide since September of last year without any benefit. She is currently symptomatic. She does remember getting some dizziness during prior vestibular testing but this was different compared to her prolonged episodes. She has tried antivert in the past which helps her sleep but not the dizziness. History confirmed and obtained at time of visit: Patient notes the following neurologic focal complaints: denies any neurologic focal complaints. Activities that provoke symptoms or aggravate symptoms or other associated symptoms: Positional Changes: sitting up from laying, standing up from sitting, turning head right, bending down, looking up and rolling over in bed to the right. Sensory and Gait: bright lights, scrolling on a phone/tablet, working on computer/laptop/tablet, riding on elevator, watching a movie/TV, being under flourescent lights, walking down a store aisle, walking over a patterned floor and tendency to veer when walking right Pressure/Sound Induced: none Cardiovascular: lightheadness with sit to stand position change Psychological: stress>anxiety Neck/Orthopedic: neck pain left with tightness. Patient has been receiving massage therapy and dry needling. Auditory History: Associated auditory complaints include:left sided otalgia and neck pain. Previous audiometry: Completed just prior to this appointment, results indicated hearing sensitivity within normal limits with a mild notch at 4000 Hz in both ears. Vision History: Date of last visual examination: Few months ago. Patient currently wearing: glasses: progressive. Patient notes the following associated visual problems: Floaters in the left eye only. Headache/Migraine History: Headaches/migraines frequency and duration: Patient reported she used to have migraines in the past, which subsided with chiropractor. Pain was localized in the back and would extend to forehead. Current headaches are localized to the occipital region. Estimates a few headaches per month, 50% occur following dizziness episodes. Additional characteristics include: photophobia Patient reports the following headache/migraine triggers: Hormonal: none Food: none Drink: none Stress: yes Sensory: bright lights Sleep: other: sleeping position due to neck issues. Physical exertion: none Environmental: none Fall/Risk History: Patient denies a history of falls. Additional falling risk factors include: none. Medical History: There is no problem list on file for this patient. Family History: Balance problems: No Hearing problems: No Headaches/Migraines: Yes, mother Other: No family history on file. Refer to the medical history clinic notes for additional details of the patient's presenting history signs and symptoms. SELF-REPORT ASSESSMENT RESULTS Symptom Rating: On a scale of 0 to 10 with 0 being no symptoms and 10 being the worst imaginable symptoms the patient reports symptoms of dizziness/imbalance today at 4.5. Fatigue Rating: On a scale of 0 to 10 with 0 being no fatigue and 10 being severe fatigue the patient reports level of fatigue today at 0. Headache Rating: On a scale of 0 to 10 with 0 being no headache and 10 being severe headache the patient reports level of headache today at 2. Dizziness Handicap Inventory (DHI): Deferred on this date. OBJECTIVE CLINICAL ASSESSMENT RESULTS Office Vestibular Examination: Extra-ocular range of motion: normal *Remaining bedside examination deferred on this date. Gait/Risk of Falling Examination: Observation of gait and transfer: abnormal, slowed gait with short steps. Additional risk of falling screening and gait examination deferred on this date. Video Head Impulse Test (VHIT): Description of Procedure: The vHIT can be completed in addition to VNG or in isolation when portions of the VNG cannot be completed, due to outer ear malformation, tympanic membrane perforation, among other factors. During vHIT, patients wear infrared goggles and their head is quickly moved in the plane of each semi-circular canal. This procedure provides an assessment of the vestibulo-ocular reflex (VOR) of each semicircular canal (high frequency responses). This procedure requires approximately 20 minutes of time. CPT code: 02961. Equipment Utilized: Interacoustics unit was used to obtain VHIT responses. Camera placement over the right eye. Lateral Canal vHIT: Normal. Findings demonstrate normal horizontal VOR gain values suggesting normal high frequency horizontal function in both ears. Of note, possible low amplitude overt saccades observed in the right lateral canal; however, this is likely due to goggle strap artifact. Vertical Canal vHIT: Did not test due to cervical range of motion restrictions and reported pain. Lateral Anterior Posterior Right Gain: 0.99, possible low amplitude overt saccades DNT DNT Left Gain: 0.95, no saccades DNT DNT NOTE: Normal gain values typically between 0.80 ? 1.20 (lateral canals) and 0.70 - 1.20 (vertical canals). Videonystagmography Examination (VNG): Description of Procedure: The VNG provides objective indications of peripheral (e.g., low frequency horizontal canal VOR function), central compensation (physiologically regarding eye movements) and central vestibulo-ocular pathway involvement (oculomotor examination). This procedure requires 30-45 minutes of time. CPT codes: 32910, 69280, 52647 Equipment Utilized: A Micromedical unit was used to record VNG. NOTE: Eye movements were analyzed with the eyes opened in darkness (unless otherwise specified) using infrared illuminated videographic pupil tracking techniques. The fast component (direction) of all nystagmus is reported, per convention, from the patient's perspective. Saccade Performance Test (pseudo-random presentation of a laser target; 5 - 50 deg horizontal steps): - Latency values: normal - Accuracy values: normal - Peak Velocity values: normal - Reported symptoms: none Pursuit Tracking Test (sinusoidal presentation of a laser target; .1-.6 Hz, 10-60 deg/sec): - Gain values: normal. No evidence of saccadic pursuit. Reported symptoms: none Spontaneous AND Gaze-Evoked Nystagmus Test (primary, 25 deg rightward, 25 deg leftward, 15 deg upward, and 15 deg downward gaze; with and without fixation): - Nystagmus gaze center with fixation: none. Reported symptoms: none. Nystagmus gaze center without fixation: none. Reported symptoms: none. - Nystagmus gaze right with fixation: none. Reported symptoms: none. Nystagmus gaze right without fixation: none. Reported symptoms: dizziness. - Nystagmus gaze left with fixation: none. Reported symptoms: none. Nystagmus gaze left without fixation: none. Reported symptoms: none. - Nystagmus gaze up with fixation: none. Reported symptoms: none. Nystagmus gaze up without fixation: none. Reported symptoms: none. - Nystagmus gaze down with fixation: none. Reported symptoms: none. Nystagmus gaze down without fixation: none. Reported symptoms: none. Neck torsion test (sitting, head turned right, sitting head turned left; without fixation): - Nystagmus neck torsion right: none. Reported symptoms: none - Nystagmus neck torsion left: none. Reported symptoms: none Vertical Semi-circular Canal BPPV Nystagmus tests (head-hanging right, sitting; head-hanging left, sitting; deep head hang; without fixation): - Nystagmus [place]-Hallpike right ear down: none. Reported symptoms: none. Nystagmus return to sit: none. Reported symptoms: 'wooziness' - Nystagmus [place]-Hallpike left ear down: none. Reported symptoms: none. Nystagmus return to sit: none. Reported symptoms: none Horizontal Semi-circular Canal BPPV and Positional Nystagmus tests (supine head centered, right ear down, left ear down, pre-caloric positions; without fixation). - Nystagmus head center supine: none. Reported symptoms: none - Nystagmus head (roll) right: none. Reported symptoms: none - Nystagmus head (roll) left: none. Reported symptoms: none - Nystagmus body right: none. Reported symptoms: none - Nystagmus body left: none. Reported symptoms: none Rotational Chair: deferred on this date. It was my pleasure to evaluate Anastasia Portillo. If you have any questions regarding this information, please contact me at [phone]. Desiree Martin. Doctor of Audiology (Karine) [employer] I verify that I have reviewed the history, test results, and interpretation for this patient. Karine Alvarez, CCC/A Clinical [facility] Summary Purpose Family History No Family History Records FoundNo Family History Records FoundNo Family History Records FoundNo Family History Records FoundNo Family History Records FoundNo Family History Records FoundNo Family History Records FoundNo Family History Records Found Advance Directives No Advanced Directives Records FoundNo Advanced Directives Records FoundNo Advanced Directives Records FoundNo Advanced Directives Records FoundNo Advanced Directives Records FoundNo Advanced Directives Records FoundNo Advanced Directives Records FoundNo Advanced Directives Records Found Additional Source Comments INFORMATION SOURCE (unrecogn ized section and content) DATE CREATED AUTHOR 09/21/2019 [facility] DATE CREATED AUTHOR AUTHOR'S ORGANIZ ATION 12/04/2021 [facility] DATE CREATED AUTHOR AUTHOR'S ORGANIZ ATION 03/06/2022 [facility] DATE CREATED AUTHOR AUTHOR'S ORGANIZ ATION 03/22/2022 [facility] DATE CREATED AUTHOR AUTHOR'S ORGANIZ ATION 11/15/2023 [facility] DATE CREATED AUTHOR AUTHOR'S ORGANIZ ATION 03/27/2024 [facility] EPIC DATE CREATED AUTHOR AUTHOR'S ORGANIZ ATION 03/29/2024 [facility] DATE CREATED AUTHOR AUTHOR'S ORGANIZ ATION 04/07/2024 [facility] FOR RECORDS PERTAINING TO PATIENTS WHO ARE OR HAVE BEEN ENROLLED IN A CHEMICAL DEPENDENCY/SUBSTANCEABUSE PROGRAM, SOME INFORMATION MAY BE OMITTED. This clinical summary was aggregated from multiple sources. Caution should be exercised in using it in the provision of clinical care. This summary normalizes information from multiple sources, and as a consequence, information in this document may materially change the coding, format and clinical context of patient data. In addition, data may be omitted in some cases. CLINICAL DECISIONS SHOULD BE BASED ON THE PRIMARY CLINICAL RECORDS. [employer] provides no warranty or guarantee of the accuracy or completeness of information in this document.
[2024-04-11 12:48] LABS: Alanine Aminotransferase 35 U/L (14-59); Albumin Globulin Ratio 1.1; Albumin Level 3.8 g/dL (3.4-5.0); Alkaline Phosphatase 90 U/L (46-116); Aspartate Amino Transferase 19 U/L (15-37); BUN Creatinine Ratio 14.1; Bilirubin Total 0.4 mg/dL (0.2-1.0); Calcium 9.4 mg/dL (8.5-10.1); Carbon Dioxide 26.4 mmol/L (21.0-32.0); Chloride 98 mmol/L (98-107); Estimated GFR (African America >60 (>=60); Estimated GFR (Non-African Ame >60 (>=60); Globulin 3.6 g/dL; Glucose 92 mg/dL (74-106); Potassium 4.4 mmol/L (3.5-5.1); Sodium 131 mmol/L (136-145); Total Protein 7.4 g/dL (6.4-8.2)
== END 2024-04-11 11:05 | disposition home or self-care (01) ==
LOC: LAB 11:05
PROVIDERS: PCP Nurse Practitioner; Visit Provider Nurse Practitioner
DX: E87.1 Hypo-osmolality and hyponatremia (principal)
CPT/HCPCS: 36415; 80053